=== PATIENT | female | born 1985 | race Caucasian/White ===

== ENCOUNTER 2016-10-09 20:09 | Emergency (ER) | payer SELFPAY ==
[~2016-10-09 20:09] MED LIST: AMBIEN10 MG PO; ANTIPYRINE-BENZ10 ML OT; ATIVAN0.5 M1 PO; BACTRIM DS TAB1 EAC2 PO; CINNAMON500 M1 PO; CINNAMON500 MG PO; CIPRO500 M2 PO; CLEOCIN HCL300 M1 PO; CYCLOBENZAPRINE10 M1 PO; ESCITALOPRAM OX10 M1 PO; GLUCOPHAGE500 MG PO; LANTUS100 U/ML SC; LANTUS100 UNITS/ SC; LISINOPRIL10 M1 PO; LISINOPRIL20 M1 PO; LISINOPRIL20 MG PO; LYRICA75 MG/CAP NG; METFORMIN HCL500 M2 PO; MULTIVITAMIN1 TAB PO; MUPIROCIN22 G2 TP; NAPROSYN500 M1 PO; NAPROXEN PO; TRAMADOL HCL50 M2 PO; TYLENOL325 M2 PO; ZITHROMAX250 M1 PO; ZOFRAN ODT4 MG PO
[2016-10-09] MEDS ORDERED: PROVENTIL HFA6.7 G1 INH (20:34)
[2017-01-18] MEDS ORDERED: COMPAZINE10 MG PO (12:48)
== END 2016-10-09 22:33 ==
LOC: EDMED 20:09
DX: S06.0X0A Concussion without loss of consciousness, initial encounter (principal); E10.9 Type 1 diabetes mellitus without complications; F17.200 Nicotine dependence, unspecified, uncomplicated; W22.8XXA Striking against or struck by other objects, initial encounter
CPT/HCPCS: J1885